=== PATIENT | female | born 1975 | race Hispanic/Latino ===

== ENCOUNTER → 2023-05-17 | Outpatient (CLI) | payer BC | END | disposition home or self-care (01) | LOC: RAH 15:09 | PROVIDERS: ATTEND Obstetrics & Gynecology | DX: Z12.31 Encounter for screening mammogram for malignant neoplasm of breast (principal) | CPT/HCPCS: 77067 ==

== ENCOUNTER → 2023-06-23 | Outpatient (CLI) | payer BC | END | disposition home or self-care (01) | LOC: RAH 14:12 | PROVIDERS: ATTEND Obstetrics & Gynecology | DX: N93.9 Abnormal uterine and vaginal bleeding, unspecified (principal); N88.8 Other specified noninflammatory disorders of cervix uteri; D25.9 Leiomyoma of uterus, unspecified | CPT/HCPCS: 76830 ==

== ENCOUNTER 2023-10-27 07:00 | Day surgery (SDC) | payer BC ==
[2023-10-22 13:51] LABS: BASOPHILS # (AUTO) 0.06 K/uL (0.00-0.20); BASOPHILS % (AUTO) 0.6 % (0.0-5.0); EOSINOPHILS # (AUTO) 0.03 K/uL (0.00-0.70); EOSINOPHILS % (AUTO) 0.3 % (0.0-8.0); HEMATOCRIT 40.2 % (36-48); IMMATURE GRANULOCYTE ABSOLUTE 0.04 K/uL (0-1); LYMPHOCYTES # (AUTO) 1.8 K/uL (1.0-4.8); LYMPHOCYTES % (AUTO) 18.9 % (21.0-51.0); MEAN CORPUSCULAR HEMOGLOBIN 29.4 pg (27.0-33.0); MEAN CORPUSCULAR HGB CONC 33.1 g/dL (32.0-36.0); MEAN CORPUSCULAR VOLUME 88.7 fL (79-99); MONOCYTES # (AUTO) 0.4 K/uL (0.1-1.0); NEUTROPHILS # (AUTO) 7.2 K/uL (1.8-7.7); NEUTROPHILS % (AUTO) 75.8 % (40.0-77.0); PLATELET COUNT (AUTO) 248 K/uL (130-400); RED BLOOD CELL COUNT(AUTO) 4.53 MIL/uL (4.00-5.50); RED CELL DISTRIBUTION WIDTH 12.1 % (11.0-15.5); WHITE BLOOD COUNT (AUTO) 9.5 K/uL (4.8-10.8)
[2023-10-22 14:01] LABS: CREATININE 0.8 mg/dL (0.5-1.5)
[2023-10-22 14:16] VITALS: BP 126/64; PULSE 78; RESP 18
[2023-10-27] VITALS (22 sets, daily range): BP systolic 87–121; BP diastolic 33–74; PULSE 53–96; RESP 11–16
[~2023-10-27] VITALS: Ht 162.6 cm; Wt 75.7 kg
[~2023-10-27 07:00] MED LIST: NORE-74 PO
[2023-10-27] MEDS ORDERED: CEFAZOLIN SODIUM 1 GM VIAL ONE (07:06)
[2023-10-27] MEDS ORDERED: SCOPOLAMINE HYDROBROMIDE 1 EACH ADH..PATCH TD ONE (07:07)
[2023-10-27] MEDS ORDERED: LACTATED RINGERS 1000ML 1,000 ML IV ONE (07:07)
[2023-10-27] MEDS ORDERED: PHENAZOPYRIDINE HCL 200 MG TABLET ONE (07:07)
[2023-10-27] MEDS ORDERED: METRONIDAZOLE 500MG/100ML BAG 100 ML ONE (07:07)
[2023-10-27] MEDS ORDERED: DEXAMETHASONE SOD PHOSPHATE 4 MG/ML 1ML VIAL ONE (07:07)
[2023-10-27] MEDS ORDERED: KETAMINE HCL 100 MG/ML 5ML VIAL IJ ONE (07:11)
[2023-10-27] MEDS ORDERED: MIDAZOLAM HCL 1 MG/ML 2ML VIAL ONE (07:22)
[2023-10-27] MEDS ORDERED: BUPIVACAINE/PF 0.25% 30ML VIAL IJ ONE ×2 (07:22→08:40)
[2023-10-27] MEDS ORDERED: PROPOFOL 10 MG/ML 20ML VIAL IV ONE (07:22)
[2023-10-27] MEDS ORDERED: LIDOCAINE 1%-EPI 1:100,000 20 ML VIAL ONE (07:22)
[2023-10-27] MEDS ORDERED: FENTANYL CITRATE PF 50 MCG/1 ML 2ML VIAL ONE (07:22)
[2023-10-27] MEDS ORDERED: ROCURONIUM BROMIDE 10MG/1ML 5ML VL ONE ×2 (07:22→08:49)
[2023-10-27] MEDS ORDERED: LIDOCAINE PF 100MG/5ML (2%) SYRINGE 5ML ONE (07:22)
[2023-10-27] MEDS ORDERED: CEFAZOLIN SODIUM 1 GM VIAL IVPB ONE (08:10)
[2023-10-27] MEDS ORDERED: DEXAMETHASONE SOD PHOSPHATE 10MG/ML 1ML VIAL ONE (08:10)
[2023-10-27] MEDS ORDERED: ONDANSETRON 4MG INJ ONE ×3 (08:11→11:46)
[2023-10-27] MEDS ORDERED: PHENYLEPHRINE HCL 10 MG/ML 1ML VIAL IV ONE (08:25)
[2023-10-27] MEDS ORDERED: NEOSTIGMINE METHYLSULFATE 1MG/ML IV ONE (08:32)
[2023-10-27] MEDS ORDERED: GLYCOPYRROLATE 0.2 MG/ML 5 ML VIAL ONE (08:32)
[2023-10-27] MEDS ORDERED: KETOROLAC 30MG VIAL (30MG/ML) ONE (09:44)
[2023-10-27] MEDS ORDERED: MEPERIDINE-PF 25 MG/ML SYG ONE (10:47)
[2023-10-27] MEDS ORDERED: KETOROLAC 15MG/ML VIAL (15MG/ML) ONE (10:47)
[2023-10-27] MEDS ORDERED: MORPHINE 10MG VIAL ONE (11:46)
[2023-10-27] MEDS ORDERED: ACETAMINOPHEN 500 MG TABLET ONE (11:46)
== END 2023-10-27 14:04 | disposition home or self-care (01) ==
LOC: DAH 07:00
PROVIDERS: ATTEND Obstetrics & Gynecology
DX: N93.9 Abnormal uterine and vaginal bleeding, unspecified (principal); N88.8 Other specified noninflammatory disorders of cervix uteri; N72 Inflammatory disease of cervix uteri; D25.9 Leiomyoma of uterus, unspecified; R87.612 Low grade squamous intraepithelial lesion on cytologic smear of cervix (LGSIL); N94.6 Dysmenorrhea, unspecified; D25.1 Intramural leiomyoma of uterus; N83.202 Unspecified ovarian cyst, left side; Z82.49 Family history of ischemic heart disease and other diseases of the circulatory system; Z83.3 Family history of diabetes mellitus; Z82.5 Family history of asthma and other chronic lower respiratory diseases
CPT/HCPCS: 80048; 85025; 86850 ×2; 86900 ×2; 86901 ×2; 36415 ×2; 58571; 81025; 88305; 88307; A6260; J1100 ×2; J7030; J7120 ×2; A4215 ×3; A4344; J3010; J0690 ×2; J3490 ×6; J0665 ×2; J2001; J2250; J2704; J2405 ×3; J1885 ×2; J2710; J2175; J2371; J2270; A4930 ×3; A4649 ×3; A4223; A4222; A4221; A4663; A4510; A4600; G0168